=== PATIENT | male | born 1985 | race Caucasian/White ===

== ENCOUNTER 2020-10-17 20:14 | Inpatient (IN) | payer OTHER ==
[~2020-10-17] VITALS: Ht 167.6 cm; Wt 131.5 kg
[2020-10-17 20:42] LABS: HEMOGLOBIN 15.9 gm/dl (14.0-17.5); RED BLOOD COUNT 5.43 M/UL (4.20-5.50); WHITE BLOOD COUNT 8.4 K/UL (4.5-11.0)
[2020-10-17 20:58] LABS: BUN/CREATININE RATIO 16 (0-10)
[2020-10-18] MEDS ORDERED: PROTONIX40 MG PO (08:00)
[2020-10-18 19:09] LABS: ADENOVIRUS F 40/41 Not Detected (Negative); ASTROVIRUS Not Detected (Negative); CAMPYLOBACTER Not Detected (Negative); CLOSTRIDIUM DIFFICILE TOX A/B Not Detected (Negative); CRYPTOSPORIDIUM Not Detected (Negative); E.COLI 0157 Not Detected (Negative); ENTAMOEBA HISTOLYTICA Not Detected (Negative); ENTEROAGGREGATIVE E.COLI (EAEC Not Detected (Negative); ENTEROPATHOGENIC E.COLI (EPEC) Not Detected (Negative); ENTEROTOXIGENIC E.COLI (ETEC) Not Detected (Negative); GIARDIA LAMBLIA Not Detected (Negative); PLESIOMONAS SHIGELLOIDES Not Detected (Negative); ROTOVIRUS A Not Detected (Negative); SALMONELLA Not Detected (Negative); SAPOVIRUS Not Detected (Negative); SHIG/ENTEROINVAS.ECOLI (EIEC) Not Detected (Negative); SHIGA-LIK TOX.PRO.E.COLI (STEC Not Detected (Negative); VIBRIO Not Detected (Negative); VIBRIO CHOLERAE Not Detected (Negative); YERSINIA ENTEROCOLITICA Not Detected (Negative)
[2020-10-19 03:37] LABS: RED BLOOD COUNT 4.99 M/UL (4.20-5.50)
[2020-10-19 03:42] LABS: WHITE BLOOD COUNT 11.5 K/UL (4.5-11.0)
[2020-10-19 03:54] LABS: BUN/CREATININE RATIO 20 (0-10)
[2020-10-19 09:25] LABS: NOROVIRUS GI/GII DETECTED (Negative)
[2020-10-19] MEDS ORDERED: PROTONIX40 M1 PO (11:20)
[2020-10-19] MEDS ORDERED: PREDNISONE 50 M50 MG PO (11:20)
[2020-10-19] MEDS ORDERED: LEVOFLOXACIN500 MG PO (11:20)
[2020-10-19] MEDS ORDERED: AMOXICILLIN500 MG PO (11:20)
== END 2020-10-19 13:24 | disposition home or self-care (01) | DRG 386 ==
LOC: ER1 20:14 → M/S 10-18 03:07 → CDU 10-18 03:07 → M/S 10-18 13:33
PROVIDERS: Internal Medicine; Physician Assistant; ADMIT Internal Medicine
DX: K50.00 Crohn's disease of small intestine without complications (principal); A09 Infectious gastroenteritis and colitis, unspecified; B19.20 Unspecified viral hepatitis C without hepatic coma; E66.9 Obesity, unspecified; F17.210 Nicotine dependence, cigarettes, uncomplicated; G43.909 Migraine, unspecified, not intractable, without status migrainosus; Z20.822 Contact with and (suspected) exposure to COVID-19
CPT/HCPCS: 36415; 80053; 81001; 82150; 83690; 85025; 85652; 86140; 87507; 99285; C9113; J1650; J2270; J2405; J2550; J2920; J7030; Q9967; U0002

== ENCOUNTER → 2020-11-09 | Outpatient (CLI) | payer OTHER ==
[~2020-11-09] MED LIST: AMOXICILLIN500 MG PO; LEVOFLOXACIN500 MG PO; PREDNISONE 50 M50 MG PO; PROTONIX40 M1 PO; PROTONIX40 MG PO
== END ==
LOC: KOH-I 08:00
DX: S83.512A Sprain of anterior cruciate ligament of left knee, initial encounter (principal); M23.611 Other spontaneous disruption of anterior cruciate ligament of right knee; S83.232A Complex tear of medial meniscus, current injury, left knee, initial encounter; M17.12 Unilateral primary osteoarthritis, left knee
CPT/HCPCS: 73721